=== PATIENT | male | born 2000 | race Caucasian/White ===

== ENCOUNTER 2022-04-24 11:00 | Emergency (ER) | payer MEDICARE, OTHER ==
[~2022-04-24 11:00] MED LIST: ALLERGY RELIEF10 M1 MT; IBUPROFEN600 MG PO; TYLENOL 325MG325 MG PO; ZOFRAN ODT 4 MG4 MG SL
[2022-04-24 11:54] LABS: RED BLOOD COUNT 4.95 M/UL (4.20-5.50); WHITE BLOOD COUNT 7.4 K/UL (4.5-11.0)
[2022-04-24 12:19] LABS: BUN/CREATININE RATIO 12 (0-10)
[2022-04-24] MEDS ORDERED: CEPHALEXIN500 M1 PO (14:46)
== END 2022-04-24 15:28 | disposition home or self-care (01) ==
LOC: ER1 11:00
PROVIDERS: Physician Assistant
DX: N20.0 Calculus of kidney (principal); N30.90 Cystitis, unspecified without hematuria; Z87.442 Personal history of urinary calculi
CPT/HCPCS: 80053; 81001; 82550; 82553; 83605; 83690; 85025; 87086; 96374; 99284; J1885